=== PATIENT | male | born 1995 | race Caucasian/White ===

== ENCOUNTER 2019-12-17 19:15 | Emergency (ER) | payer MEDICAID, SELFPAY ==
[2019-12-17 19:19] VITALS: BP 152/79; PULSE 83; RESP 16; TEMP 36.7; O2SAT 99
--- NOTE | 2019-12-17 19:30 | DI.CT_ITS ---
EXAM: CT ABDOMEN PELVIS WO/W CLINICAL HISTORY: r/o kidney stone, vs obstruction TECHNIQUE: COMPARISON: No exams were available for comparison FINDINGS: CT examination of the abdomen and pelvis was performed with bolus infusion of 100 cc of Omnipaque 350 . Images obtained through the lung bases are unremarkable. The liver and spleen appear normal as does the pancreas. Gallbladder and bile ducts are unremarkable. Adrenals appear normal bilaterally. Kidneys appear normal with no evidence of renal mass, hydronephro sis, or nephrolithiasis There is moderate prominence mesenteric lymph nodes. No confluent apolinar masses seen. Abdominal aorta is of normal diameter and no major vascular abnormality is seen. Appendix is normal. No evidence diverticulitis or bowel obstruction. Note is made of apparent wall e edda of the mid to distal ileum and possibly portions of colon as well including cecum, and portions of descending and sigmoid colon. Possibility of enteritis is raised. No significant abdominal wall hernia seen. Impression: Possibility of enteritis is raised. Moderate mesenteric lymph node prominence is noted which suggest s inflammatory/infectious process. RADIATION DOSE DELIVERED: 1,706.84mGy.cm Total DLP DATA REPOSITORY: All CT scans at this facility are submitted to the National Radiology Data Registry (NRDR) Dose Index Registry (DIR) with the [employer] ([employer]). RADIATION OPTIMIZATION: All CT scans at this facility use at least one of these dose optimization te chniques: automated exposure control; mA and/or kV adjustment per patient size (includes targeted exa ms where dose is matched to clinical indication); or iterative reconstruction.
--- NOTE | 2019-12-17 19:40 | W.ED.GENAD ---
Discharge Plan Disposition Patient Disposition: HOME Condition: Stable Discharge Details Chief Complaint: Abd Prob Clinical Impression: Abdominal pain, Hepatic enlargement Primary Care Provider: Jenise Fuentes ED Provider: Angie Gordon Home Meds and New Rx's Prescriptions: New ondansetron HCl [Zofran] 4 mg tablet 4 mg PO Q8H PRN (Reason: nausea and vomiting) Qty: 14 RF: 0 No Action tamsulosin [Flomax] 0.4 mg Capsule 0.4 mg PO DAILY RF: 0 Discharge Instructions Instructions: Abdominal Pain (ED) Additional Instructions: Follow up with primary care provider in 3-5 days. Return to ED sooner if any worsening or concerns. Increase oral fluids. Decrease alcohol intake if possible. Take medications as prescribed. Do not take any extra Tylenol. Upon her visit today your liver enzymes are elevated, you do have a slight low magnesium level at 1.6, take multivitamin every day. You may take Ibuprofen as needed. Referrals: Jenise Fuentes [Primary Care Provider] - Discharge Data Discharge Date/Time-TO BE ENTERED AT DEPARTURE: 12/17/19 22:50 Medical Decision Making 24-year-old male presents to the ER with decreased urinary output, watery stools, generalized abdominal pain with increased right upper quadrant abdominal pain and abdominal bloating since . Seen by primary care provider yesterday and was sent here to rule out kidney stone. Patient also endorses dysuria, nausea vomiting none within the last 48 hours. He is a daily drinker. Denies surgical abdominal history. 2153: This time CT results still pending, discussed lab results with patient, verbalized understanding. Does have elevated liver enzymes, some trace RBCs in his urine no evidence of urinary tract infection. His magnesium is 1.6, potassium 3.4, AST is 43, ALT is 123. Total bilirubin is 1.9, At this time anticipated disposition is discharged with follow-up with primary care instructed to cut back on drinking and to decrease Tylenol intake. Patient verbalized understanding. At this time I do not see evidence for kidney stone on his CT but CT result is still pending at this time. Plan is to discharge patient home Zofran 4 mg p.o. 3 times a day as needed. Clinical indication: Other: Ruq and RT flank pain. TECHNIQUE: Imaging protocol: Computed tomography of the abdomen and pelvis without and with intravenous contrast. Radiation optimization: All CT scans at this facility use at least one of these dose optimization techniques: automated exposure control; mA and/or kV adjustment per patient size (includes targeted exams where dose is matched to clinical indication); or iterative reconstruction. Contrast material: OMNIPAQUE 350; Contrast volume: 100 ml; Contrast route: INTRAVENOUS (IV); COMPARISON: No relevant prior studies available. FINDINGS: Liver: The liver is normal in size. There are no enhancing liver masses. Gallbladder and bile ducts: The gallbladder is normal. There is no evidence of biliary ductal dilation. Pancreas: Normal. No ductal dilation. Spleen: The spleen is at the upper limits of normal in size measuring 13 cm in length. The within the spleen, there is a 5 mm hypoattenuating lesion, too small to characterize but likely a hamartoma. Adrenals: The adrenal glands are normal. Kidneys and ureters: No hydronephrosis, no renal or ureteral calculi. Stomach and bowel: There is hyperemia and mild wall thickening of the distal and terminal ileum and to a lesser extent, the colonic wall. Appendix: No evidence of appendicitis. Intraperitoneal space: Unremarkable. No free air. No significant fluid collection. Vasculature: The aorta appears normal, without aneurysm. The aorta appears normal, without aneurysm. Lymph nodes: There are too numerous to count mesenteric lymph nodes ranging in size from 3-10 mm in short dimension. These are in the right lower quadrant but also along the root of the mesentery. Bladder: The bladder is mostly decompressed and shows a normal contour. The bladder is mostly decompressed and shows a normal contour. Reproductive: Unremarkable as visualized. Bones/joints: Unremarkable. No acute fracture. Soft tissues: Unremarkable. IMPRESSION: 1. Mesenteric adenitis, likely associated with ileocolitis. While the etiology of these findings is likely infectious, consider follow-up until resolution to exclude the less likely possibility of lymphoma. 2. Spleen at the upper limits of normal in size containing a 5 mm hypodensity, too small to characterize but likely a hamartoma. Thank you for allowing us to participate in the care of your patient. Dictated and Authenticated by: Trey Cope MD Discussed CT results with patient, verbalized understanding. Will place patient on 7 days of Cipro 500 mg twice daily. Please see paper chart for rest of discharge instructions given to patient downtime procedures. Discussed strict return instructions and close follow-up with primary care which patient verbalizes understanding. Patient states that he has an appointment later this week with his PCP. At the time of this dictation patient was hemodynamically stable. This text was generated using [employer] system, please disregard any oddities of phrase or misspellings. HPI General Mode of arrival: ambulatory. Date/Time Provider Initiated Documentation: 12/17/19 19:24. Limitations to Documentation: no limitations. Information obtained by: patient. HPI Narrative: 24-year-old male presents to the ER with decreased urinary output, watery stools, generalized abdominal pain with increased right upper quadrant abdominal pain and abdominal bloating since . Seen by primary care provider yesterday and was sent here to rule out kidney stone. Patient also endorses dysuria, nausea vomiting none within the last 48 hours. He is a daily drinker. Denies surgical abdominal history. Related Data Home Medications Medication Instructions Recorded Confirmed ondansetron HCl [Zofran] 4 mg PO Q8H PRN #14 tab 12/17/19 tamsulosin [Flomax] 0.4 mg PO DAILY 12/17/19 12/17/19 Previous Rx's Medication Instructions Recorded ondansetron HCl [Zofran] 4 mg PO Q8H PRN #14 tab 12/17/19 Allergies Allergy/AdvReac Type Severity Reaction Status Date / Time No Known Allergies Allergy Unverified 12/17/19 19:22 General Stated Complaint: Abd Prob JOVANNY: 3 Review of Systems Narrative: Constitutional: Negative for weight loss, alert and oriented, well groomed, normal body habitus, appears comfortable. HEENT: Denies trauma, headaches, blurry vision, nasal discharge, sore throat, trouble swallowing. Chest: Denies chest pain, palpitations, irregular rhythm, hypertension. Respiratory: Denies Shortness of breath, cough, hemoptysis. GI: Denies, constipation. Positive right upper quadrant abdominal pain, dysuria, urinary hesitancy, nausea vomiting and watery loose stools. : Denies , flank pain, rectal bleeding. Positive dysuria and hematuria. Neuro: Denies dizziness, blurry vision, weakness, syncope, headache or facial numbness. Hematologic: Denies easy bruising, intolerance to heat or cold, hair loss. COUNT INCLUDES THE [facility] Social History Smoking/Tobacco Use Status: Current every day Tobacco Type: cigarettes Alcohol Intake: current Alcohol Intake frequency: 3 or more drinks per day Alcohol type: beer Substance use type: does not use Do you feel safe at home: Yes Do you feel safe in your relationship?: Yes Exam Narrative Exam Narrative: Constitutional: Alert and oriented x3. Appears stated age. Normal body habitus. Head: Normocephalic, no trauma. Eyes: Pupils PERRLA, Red reflex noted, EOM's intact. Eyelids symmetrical without lesions, discharge, or swelling. ENT: Bilateral TM's WNL, External ear normal to inspection, no mastoid TTP, swelling, or erythema, Nasal turbinates WNL, no nasal discharge. Normal dentition, Posterior pharynx WNL, no exudate. Chest: RRR, Normal S1, S2, distal pulses intact. Resp: Lungs clear to auscultation bilaterally, no wheezes, rales, or rhonchi. Musculoskeletal: Normal gait, 5/5 strength to all four extremities. Abdomen: Soft, tender RUQ with palpation, bloated. Skin: No suspicious rashes or lesions. Capillary refill less than 2 sec. Neurologic: Cranial nerves II-XII intact. Alert and oriented x 3. DTR's intact. Hematologic/Lymphatic: No ecchymosis, no lymphadenopathy. Course Vital Signs Vital signs: Vital Signs Temperature 36.7 C 12/17/19 19:19 Pulse 83 12/17/19 19:19 Respiratory Rate 16 12/17/19 19:19 Blood Pressure 152/79 H 12/17/19 19:19 Pulse Oximetry 99 12/17/19 19:19 Temperature 36.7 C 12/17/19 19:19 Temperature Source Temporal Artery Scan 12/17/19 19:19 Pulse 83 12/17/19 19:19 Respiratory Rate 16 12/17/19 19:19 Respiratory Effort Non-Labored 12/17/19 19:24 Blood Pressure 152/79 H 12/17/19 19:19 Blood Pressure Position Sitting 12/17/19 19:19 Pulse Oximetry 99 12/17/19 19:19 Oxygen Delivery Method Room Air 12/17/19 19:19 Oxygen Flow Rate 0 12/17/19 19:19 Pain Level 8 12/17/19 19:19
[2019-12-17 20:11] LABS: Abs Immature Grans 0.02 10^3/uL (0.0-0.06); HCT 50.3 % (40.0-50.0); HGB 17.8 g/dL (13.5-17.5); MCH 28.3 pg (27.0-33.0); MCHC 35.4 % (32.0-36.0); MPV 9.4 fL (8.0-11.0); Nucleated RBC 0 %; Platelet Count 339 10^3/uL (130-400); RBC 6.29 10^6/uL (4.36-5.78); RDW 11.8 % (11.8-14.1); RDW-SD 33.9 fL
[2019-12-17 20:12] LABS: ALT 153 U/L (16-63); AST 43 U/L (15-37); Albumin 3.8 g/dL (3.4-5.0); Alkaline Phosphatase 85 U/L (46-116); Anion Gap 5.3 mmol/L (3-11); BUN 15 mg/dL (7-18); Bilirubin Small (Negative); Bilirubin, Total 1.9 mg/dL (0.2-1.0); Blood Trace-intact (Negative); CO2 32.7 mmol/L (21.0-32.0); CREATININE 0.94 mg/dL (0.70-1.30); Chloride 98 mmol/L (98-107); Clarity Clear (Clear); Glucose 130 mg/dL (74-106); Glucose Negative (Negative); Ketones Trace mg/dL (Negative); Leukocyte Esterase Negative (Negative); Magnesium 1.6 mg/dL (1.8-2.4); Nitrite Negative (Negative); Potassium 3.4 mmol/L (3.5-5.1); Sodium 136 mmol/L (136-145); Specific Gravity >= 1.030 (1.005-1.025); Total Protein 6.9 g/dL (6.4-8.2); Urobilinogen 0.2 EU/dL (Up TO 0.2)
[2019-12-17] MEDS: Normal Saline Flush 10 ML SYR IVP (20:15)
[2019-12-17] MEDS: Omnipaque 350 MG/ML 100 ML BTL IJ (20:15)
[2019-12-17] MEDS: Normal Saline - Diluent 50 ML VIAL IV (20:16)
[2019-12-17 20:21] LABS: Bacteria Negative HPF (Negative); Epithelial Cells Negative HPF (Negative); Other Cells Negative (Negative)
[2019-12-17 20:22] LABS: C & S Indicated? No; Casts Negative LPF (Negative); Crystals Negative HPF (Negative); Mucus Moderate (Negative)
[2019-12-17 20:30] LABS: Absolute Lymphocyte Count 1.37 10^3/uL (1.2-3.4); Absolute Monocyte Count 0.85 10^3/uL (0.1-0.8); Atypical Lymphocytes % 1; Bands % 2
[2019-12-17 20:31] LABS: Diff Comment Manual Differential; RBC Morphology Normal
[2019-12-17 20:40] VITALS: BP 127/75; PULSE 72; RESP 16; O2SAT 97
[2019-12-17 21:52] LABS: Lipase 123 U/L (73-393)
--- NOTE | 2019-12-18 01:26 | DI.VRAD_ITS ---
PROCEDURE INFORMATION: Exam: CT Abdomen And Pelvis Without And With Contrast Exam date and time: 12/17/2019 7:40 PM Age: 24 years old Clinical indication: Other: Ruq and RT flank pain. TECHNIQUE: Imaging protocol: Computed tomography of the abdomen and pelvis without and with intravenous contrast. Radiation optimization: All CT scans at this facility use at least one of these dose optimization techniques: automated exposure control; mA and/or kV adjustment per patient size (includes targeted exams where dose is matched to clinical indication); or iterative reconstruction. Contrast material: OMNIPAQUE 350; Contrast volume: 100 ml; Contrast route: INTRAVENOUS (IV); COMPARISON: No relevant prior studies available. FINDINGS: Liver: The liver is normal in size. There are no enhancing liver masses. Gallbladder and bile ducts: The gallbladder is normal. There is no evidence of biliary ductal dilation. Pancreas: Normal. No ductal dilation. Spleen: The spleen is at the upper limits of normal in size measuring 13 cm in length. The within the spleen, there is a 5 mm hypoattenuating lesion, too small to characterize but likely a hamartoma. Adrenals: The adrenal glands are normal. Kidneys and ureters: No hydronephrosis, no renal or ureteral calculi. Stomach and bowel: There is hyperemia and mild wall thickening of the distal and terminal ileum and to a lesser extent, the colonic wall. Appendix: No evidence of appendicitis. Intraperitoneal space: Unremarkable. No free air. No significant fluid collection. Vasculature: The aorta appears normal, without aneurysm. The aorta appears normal, without aneurysm. Lymph nodes: There are too numerous to count mesenteric lymph nodes ranging in size from 3-10 mm in short dimension. These are in the right lower quadrant but also along the root of the mesentery. Bladder: The bladder is mostly decompressed and shows a normal contour. The bladder is mostly decompressed and shows a normal contour. Reproductive: Unremarkable as visualized. Bones/joints: Unremarkable. No acute fracture. Soft tissues: Unremarkable. IMPRESSION: 1. Mesenteric adenitis, likely associated with ileocolitis. While the etiology of these findings is likely infectious, consider follow-up until resolution to exclude the less likely possibility of lymphoma. 2. Spleen at the upper limits of normal in size containing a 5 mm hypodensity, too small to characterize but likely a hamartoma. Dictated and Authenticated by: Trey Cope MD. Ordering:CHRISTIAN Adams MD
== END 2019-12-17 22:50 | disposition home or self-care (01) ==
LOC: ER 21:40
PROVIDERS: Emergency Provider Registered Nurse Emergency; PCP Family Medicine
DX: R16.0 Hepatomegaly, not elsewhere classified (principal); R10.84 Generalized abdominal pain; R79.89 Other specified abnormal findings of blood chemistry
CPT/HCPCS: 80053; 83690; 96374; 99285; 74178; 81003; 81015; 83735; 85025; 99284; J3490